=== PATIENT | female | born 1935 | race Caucasian/White ===

== ENCOUNTER 2017-08-07 19:59 | Inpatient (IN) | payer MEDICARE, BC ==
[~2017-08-07] VITALS: Ht 160 cm; Wt 73.9 kg
--- NOTE | ~2017-08-07 | EKG ---
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
[~2017-08-07 19:59] MED LIST: APAP650 PO; ATIVAN1 MG PO; CALCIUM; DIOVAN160 MG PO; FLEXERIL PO; GLUCOSAMINE1000 MG PO; LEVOTHYROXIN0.025 MG PO; MEVACOR40 MG PO; MULTIVITAMINS; PRILOSEC 20 MG20 MG PO; SULINDAC 200MG200 M1 PO; TEGRETOL XR200 MG PO
[2017-08-07 20:17] VITALS: BP 174/71
[2017-08-07 20:38] LABS: ABSOLUTE EOSINOPHILS 0.2 thou/uL (0.0-0.7); ABSOLUTE LYMPHOCYTES 1.9 thou/uL (0.8-5.3); ABSOLUTE MONOCYTES 0.7 thou/uL (0.0-1.2); ABSOLUTE NEUTROPHILS 2.8 thou/uL (1.6-8.1); BASOPHILS 0.7 %; HEMATOCRIT 34.5 % (37.0-47.0); LYMPHOCYTES 34.1 %; MCH 33.2 pg (26.0-34.0); MCHC 34.9 g/dL (28.0-37.0); MONOCYTES 12.1 %; MPV 8.8 fl. (7.2-11.1); NUCLEATED RBCS 0 /100WBC; PLATELET COUNT* 283 thou/uL (150-400); POLYS 50.1 %; RBC 3.63 mil/uL (4.20-5.00); RDW-CV 12.9 % (10.5-14.5); WBC 5.5 thou/uL (4.0-11.0)
[2017-08-07 20:45] LABS: ANION GAP 8 mmol/L (7-16); BUN 17 mg/dL (7-18); CALCIUM 9.6 mg/dL (8.5-10.1); CHLORIDE 90 mmol/L (98-107); CO2 28 mmol/L (21-32); CREATININE 0.9 mg/dL (0.6-1.3); GLUCOSE 136 mg/dL (70-99); POTASSIUM 4.3 mmol/L (3.5-5.1); SODIUM 126 mmol/L (136-145)
[2017-08-07 20:48] LABS: INR 1.1; PROTIME 10.8 Seconds (9.20-11.50)
[2017-08-07 20:52] LABS: POC CA IONIZED 4.8 mg/dL (4.5-5.3); POC CREATININE 0.9 mg/dL (0.6-1.3); POC HEMOGLOBIN 11.2 g/dL (12.0-17.0); POC POTASSIUM 3.6 mmol/L (3.5-4.9)
[2017-08-07 20:56] LABS: ALBUMIN 3.9 g/dL (3.4-5.0); ALKALINE PHOSPHATASE 102 U/L (46-116); NT-PRO BRAIN NAT PEPTIDE 379 pg/mL (<300); SGOT 16 U/L (15-37); SGPT 21 U/L (30-65); TOTAL BILIRUBIN 0.2 mg/dL (<0.1-1.0); TOTAL PROTEIN 7.6 g/dL (6.4-8.2); TROPONIN-I LEVEL <0.06 ng/mL (<0.06)
[2017-08-07 21:17] LABS: APTT 26.2 Seconds (25.0-31.3)
[2017-08-07] MEDS ORDERED: TUMS (21:41)
[2017-08-07] MEDS ORDERED: NEXIUM20 M1 (21:42)
[2017-08-07] MEDS ORDERED: ATIVAN0.5 MG PO (21:43)
[2017-08-07] MEDS ORDERED: D3-5050000 UNIT PO (21:43)
[2017-08-07] MEDS ORDERED: CARBAMAZEPINE200 M5 PO (21:44)
[2017-08-07] MEDS ORDERED: SYNTHROID50 MCG (21:46)
[2017-08-07] MEDS ORDERED: LIPITOR 20 MG T20 M1 PO (21:46)
[2017-08-07] MEDS ORDERED: MOBIC7.5 MG (21:47)
[2017-08-07 23:58] VITALS: BP 159/83
[2017-08-08 00:20] VITALS: BP 145/74
[2017-08-08 04:00] VITALS: BP 154/68
[2017-08-08 05:40] LABS: HEMATOCRIT 33.1 % (37.0-47.0); HEMOGLOBIN 11.8 gm/dL (12.0-15.0); MCH 33.7 pg (26.0-34.0); MCHC 35.5 g/dL (28.0-37.0); MCV 94.9 fL (80.0-100.0); MPV 10.1 fl. (7.2-11.1); RBC 3.49 mil/uL (4.20-5.00); RDW-CV 12.7 % (10.5-14.5); WBC 6.9 thou/uL (4.0-11.0)
[2017-08-08 06:23] LABS: CALCIUM 9.7 mg/dL (8.5-10.1); CREATININE 0.8 mg/dL (0.6-1.3); TOTAL BILIRUBIN 0.3 mg/dL (<0.1-1.0)
[2017-08-08 06:24] LABS: ALBUMIN 3.7 g/dL (3.4-5.0); TOTAL PROTEIN 7.3 g/dL (6.4-8.2)
[2017-08-08 08:00] VITALS: BP 157/79
[2017-08-08] MEDS ORDERED: NEXIUM40 MG PO (09:05)
[2017-08-08] MEDS ORDERED: CALCIUM 600 +1 EAC1 PO ×2 (09:05→10:09)
[2017-08-08] MEDS ORDERED: CARBAMAZEPINE300 MG PO (10:12)
[2017-08-08] MEDS ORDERED: GLUCOSAMINE &1 EACH PO (10:15)
[2017-08-08] MEDS ORDERED: PRESERVISION A1 EACH PO (10:16)
[2017-08-08] MEDS ORDERED: D3-5050000 UNIT PO (10:17)
[2017-08-08 12:00] VITALS: BP 119/74
--- NOTE | 2017-08-08 14:48 | EKG ---
[place] [address] ELECTROCARDIOGRAM REPORT Name: JESSICA MEJIA Room: [address] IN ..#: [id number] Admission: 08/07/17 Attend Phys: Cirilo Roberts, Discharge: Date of : 39 Report #: [id number] THIS REPORT FOR: //name// 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
--- NOTE | 2017-08-08 14:48 | EKG ---
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1935 Requested By: Emilia Biggs Order Number: [id number] MD: Elmer Lara Measurements Intervals [place] Rate: 105 P: 76 [place]: 168 QRS: -11 QRSD: 137 T: 130 QT: 372 QTc: 492 Interpretive Statements Sinus tachycardia Probable left atrial enlargement Left bundle branch block No previous ECG available for comparison Electronically Signed On 08-08-2017 14:48:02 CDT by Elmer Lara [email or web address] <ELECTRONICALLY SIGNED> By: Elmer Lara MD, [facility] 08/08/17 1448 16 16 Elmer Lara MD, FACC /EPI
[2017-08-08 16:00] VITALS: BP 154/65
[2017-08-08 20:00] VITALS: BP 145/88
[2017-08-09] VITALS: BP 148/68
[2017-08-09 04:00] VITALS: BP 162/62
[2017-08-09 08:00] VITALS: BP 156/67
[2017-08-09 08:24] LABS: URINE BILIRUBIN NEGATIVE (Negative); URINE BLOOD NEGATIVE (Negative); URINE CLARITY CLEAR; URINE COLOR YELLOW; URINE GLUCOSE-RANDOM NEGATIVE (Negative); URINE KETONES NEGATIVE (Negative); URINE LEUKOCYTES 1+ (Negative); URINE NITRITE NEGATIVE (Negative); URINE PROTEIN NEGATIVE (Negative); URINE UROBILINOGEN 0.2 E.U./dl (0.2-1.0)
[2017-08-09 08:37] LABS: BACTERIA >30 Many /HPF (None Seen); CASTS None Seen /LPF (None Seen); CRYSTALS None Seen /LPF (None Seen); MUCUS 0-3 Light strn/LPF (None Seen); SQUAMOUS 4-10 Moderate /LPF (0-3); URINE RBC 0-2 Rare /HPF (0-2); URINE WBC 6-15 Few /HPF (0-5)
[2017-08-09 11:28] VITALS: BP 156/67
[2017-08-09] MEDS ORDERED: CEFDINIR300 MG PO (11:59)
--- NOTE | 2017-08-09 16:04 | 2DMMODE ---
[place] [address] 2 D/M-MODE ECHOCARDIOGRAM Name: JESSICA MEJIA Room: [address] IN [facility]#: [id number] Admission: 08/07/17 Attend Phys: Cirilo Rivers Discharge: 08/09/17 Date of : 39 Date of Service: 08/09/17 1604 Report #: [id number] THIS REPORT FOR: //name// APPROVED REPORT Study performed: 08/09/2017 11:46:54 EXAM: Comprehensive 2D, Doppler, and color-flow Echocardiogram Patient Location: In-Patient Room #: 218 BSA: 1.77 HR: 82 bpm BP: 156/67 mmHg Other Information Study Quality: Fair Indications Aortic Valve Disease 2D Dimensions LVEF(%): 71.51 (>50%) IVSd: 10.61 (7-11mm) LVOT Diam: 19.73 (18-24mm) LVDd: 40.62 mm PWd: 10.28 (7-11mm) Ascending Ao: 24.53 (22-36mm) LVDs: 24.25 (25-40mm) Aortic Root: 21.83 mm Avila's LVEF: 71.51 % Volumes Left Atrial Volume (Systole) LA ESV Index: 21.40 mL/m2 Aortic Valve AoV Peak Galileo.: 3.14 m/s AO Peak Gr.: 39.36 mmHg LVOT Max P.60 mmHg AO Mean Gr.: 22.76 mmHg LVOT Mean P.17 mmHg LVOT Max V: 1.18 m/s AO V2 VTI: 65.69 cm LVOT Mean V: 0.84 m/s SURINDER (VTI): 1.14 cm2 LVOT V1 VTI: 24.41 cm Mitral Valve MV Peak Gr.: 15.30 mmHg MV Mean Gr.: 4.89 mmHg E/A Ratio: 0.69 [place] [address] 2 D/M-MODE ECHOCARDIOGRAM Name: JESSICA MEJIA Room: [address] IN ..#: [id number] Admission: 08/07/17 Attend Phys: Cirilo Rivers Discharge: 08/09/17 Date of : 39 Date of Service: 08/09/17 1604 Report #: [id number] MV Decel. Time: 244.49 ms MV E Max Galileo.: 1.13 m/s MV PHT: 70.90 ms MVA (PHT): 3.10 cm2 TDI E/Lateral E': 16.14 E/Medial E': 16.14 Medial E' Galileo.: 0.07 m/s Lateral E' Galileo.: 0.07 m/s Pulmonary Valve PV Peak Galileo.: 0.96 m/s PV Peak Gr.: 3.68 mmHg Tricuspid Valve TR Peak Gr.: 32.53 mmHg RVSP: 37.53 mmHg Left Ventricle The left ventricle is normal size. There is normal LV segmental wall motion. There is normal left ventricular wall thickness. Left ventricular systolic function is normal. The left ventricular ejection fraction is within the normal range. LVEF is 55-60%. Grade I - abnormal relaxation pattern. Right Ventricle The right ventricle is normal size. The right ventricular systolic function is normal. Atria The left atrium size is normal. The right atrium size is normal. Aortic Valve Aortic valve is calcified. Mild aortic regurgitation. Moderate aortic stenosis. Mitral Valve There is mitral annular calcification. Mitral valve leaflets are calcified. Mild to moderate mitral regurgitation. Mild mitral stenosis. Tricuspid Valve The tricuspid valve is normal in structure. Mild tricuspid regurgitation. The RVSP is __37.5 mmHg. Pulmonic Valve Pulmonic valve is not well visualized. There [place] [address] 2 D/M-MODE ECHOCARDIOGRAM Name: JESSICA MEJIA Room: [address] IN M.R.#: [id number] Admission: 08/07/17 Attend Phys: Cirilo Rivers Discharge: 08/09/17 Date of : 39 Date of Service: 08/09/17 1604 Report #: [id number] regurgitation. Great Vessels The aortic root is normal in size. IVC is normal in size and collapses with >50% inspiration Pericardium There is no pericardial effusion. <Conclusion> LVEF is 55-60%. Moderate aortic stenosis. Mild aortic regurgitation. Mild to moderate mitral regurgitation. Mild mitral stenosis. Mild tricuspid regurgitation. The RVSP is __37.5 mmHg. <ELECTRONICALLY SIGNED> By: Marcio Harvey MD, [facility] 08/09/17 1604 1604 1604 Marcio Harvey MD, FACC /INF
--- NOTE | 2017-08-16 09:40 | CON ---
[address] [address] CONSULTATION Name: JACKIEJESSICA Room: [address] IN M.R.#: [id number] Admission: 08/07/17 Attend Phys: Cirilo Roberts, Discharge: 08/09/17 Date of : 39 Report #: [id number] THIS REPORT FOR: //name// CC: Shannan Roberts DATE OF SERVICE: 08/08/2017 HISTORY OF PRESENT ILLNESS: This is an 82-year-old female patient who was evaluated by me for a passing out spell and to determine any neurological etiology for the patient's passing out spell. This patient usually goes to [facility]. She follows up with the primary care. They have diagnosed her with vascular dementia. It is not clear what testing was done. She does have a cardiac murmur. They have not replaced the valve. She has episodes of passing out. She has severe memory disturbances. It is not clear if anything makes it better or worse. REVIEW OF SYSTEMS: Indicates she has a history of seizure disorder, that is a longstanding seizure disorder and she has been on multiple medications. From last several years she has been on Tegretol. The says the dose is 200 mg in the morning and 300 at night. She does not see a neurologist, but her primary care checks for level and other blood workup every year. She has a history of heart murmur. She has an aortic disease, but says she has never been operated upon or anything was done to that valvular disease. She takes lorazepam for anxiety. A 14-point review of system was carried out and does not look like this patient has any new eye, ENT, respiratory, GI, , musculoskeletal, constitutional, dermatological, hematological, psychiatric, throat, allergic symptom associated with present symptomatology. She has cardiac disease, but that is past. PAST MEDICAL HISTORY: Positive for what looks like advanced dementia. FAMILY HISTORY: Negative for any early age strokes. SOCIAL HISTORY: She lives with her and does not drink alcohol. PHYSICAL EXAMINATION: Indicate she is alert. She is responsive. She does not know what month it is. She does not know what hospital she is in. She does not know who the president is. She has advanced dementia. Cranial nerve examination 2-12 was attempted, the cooperation was poor, but I do not see any marked abnormality. She moves all 4 extremities. She does not even understand the instruction to do the cerebellar sign or position sense. She did not cooperate with the fundus examination. Her heart appeared to be irregular. No respiratory difficulty or rhonchi was noticed. IMPRESSION: [place] [address] CONSULTATION Name: JESSICA MEJIA Room: [address] IN M.R.#: [id number] Admission: 08/07/17 Attend Phys: Cirilo Roberts, Discharge: 08/09/17 Date of : 39 Report #: [id number] 1. Passing out spell. This may be cardiac because her EKG has indicated atrial flutter and this patient has what he described as a valvular lesion and that can make the person pass out. 2. History of seizures that is a longstanding problem. We need to start the patient on Tegretol because she missed the last night's dose and I asked the nurses to do that. 3. Advanced dementia. That will become worse if there is an embolization from the heart. I tried to talk to the patient, but I do not think she understood things, so I called the patient's and discussed the things with him. They need to make a decision how aggressive they want to be. If they want to be aggressive, the patient needs an MRI and the patient needs a cardiac evaluation. If they want conservative care and no aggressive evaluation and management, then an EEG can be done and if she does not have any seizure, some management of the cardiac problem can be done. He told me he wants nonaggressive treatment and wants me to hold the MRI and we will do that. More than 50 minutes of time was spent taking care of this patient and majority of that time was spent counseling the patient and since the patient does not understand things, counseling the patient's . Thank you very much for this referral and if you have any question, please feel free to contact me. <ELECTRONICALLY SIGNED> By: Roshan Sheppard MD 08/16/17 0940 0821 1227Roshan Sheppard MD /nt
--- NOTE | 2017-08-16 09:40 | EEG ---
[address] [address] EEG STUDY REPORT Name: JESSICA MEJIA Room: [address] IN M.R.#: [id number] Admission: 08/07/17 Attend Phys: Cirilo Roberts, Discharge: 08/09/17 Date of : 39 Report #: [id number] THIS REPORT FOR: //name// CC: Shannan Roberts DATE OF SERVICE: 08/08/2017 INDICATION FOR PROCEDURE: This patient is being evaluated by syncope and seizure. DESCRIPTION OF PROCEDURE: EEG was done by placing the electrode by standard 10-20 system of electrode placement. Both referential and sequential montages were used for recording. Background activity in this patient's EEG is about 7 Hz and 30 microvolt. Photic stimulation is unremarkable. The patient went to sleep and that is associated with bilateral slowing and vertex sharp waves. IMPRESSION: This is an abnormal electroencephalogram because it is disorganized and poorly formed. That is a nonspecific abnormality, which can occur with encephalopathy, effect of psychotropic medication, dementia, etc. No active epileptiform activity was noticed, but electroencephalogram can be normal in a patient with a seizure disorder. Thank you very much for this referral. <ELECTRONICALLY SIGNED> By: Roshan Sheppard MD 08/16/17 0940 12 2034Pmaria de jesus Sheppard MD /nt
== END 2017-08-09 15:23 | disposition home or self-care (01) | DRG 690 ==
LOC: M.ERS 19:59 → M.2W 23:12 → M.TBA-ER 23:12 → M.2W 23:44
PROVIDERS: Emergency Medicine; ADMIT Family Medicine
DX: N39.0 Urinary tract infection, site not specified (principal); E87.1 Hypo-osmolality and hyponatremia; F01.50 Vascular dementia, unspecified severity, without behavioral disturbance, psychotic disturbance, mood disturbance, and anxiety; G40.909 Epilepsy, unspecified, not intractable, without status epilepticus; I10 Essential (primary) hypertension; E03.9 Hypothyroidism, unspecified; Z86.73 Personal history of transient ischemic attack (TIA), and cerebral infarction without residual deficits; Z95.2 Presence of prosthetic heart valve; Z79.899 Other long term (current) drug therapy; Z88.8 Allergy status to other drugs, medicaments and biological substances; Z83.3 Family history of diabetes mellitus